=== PATIENT | male | born 1960 | race Caucasian/White ===

== ENCOUNTER 2022-03-11 11:35 | Inpatient (IN) | payer OTHER ==
[2022-03-11] MEDS ORDERED: ALBUTEROL SO4 2.5/IPRATROPIUM 0.5 INH SOL 3 ML VIAL.NEB. NEB ONE ×2 (11:43→11:57)
[2022-03-11] MEDS ORDERED: DEXAMETHASONE SOD PHOSPHATE 10 MG/1 ML VIAL ONE ×2 (11:43→11:49)
[2022-03-11] MEDS ORDERED: HYDROmorphone HCL CARPU-JECT 2 MG/1 ML DISP.SYRIN IVPB ONE (11:54)
[2022-03-11] MEDS ORDERED: DEXAMETHASONE SOD PHOSPHATE 10 MG/1 ML VIAL IVPUSH ONE (11:58)
[2022-03-11] MEDS ORDERED: ALBUTEROL SO4 0.083% IH SOL 2.5 MG/3 ML VIAL.NEB. NEB ONE ×4 (12:16→14:42)
[2022-03-11 12:50] LABS: ARTERIAL BLD GAS O2 SATURATION 90.8 % (95-98); ARTERIAL BLOOD GAS BASE EXCESS 22.8 mmol/L (-2-2); ARTERIAL BLOOD GAS PO2 80.6 mmHg (80-100)
[2022-03-11 12:56] LABS: ARTERIAL BLOOD GAS pH 7.184 (7.350-7.450)
[2022-03-11 12:57] LABS: ARTERIAL BLOOD GAS PCO2 > 148.50 mmHg (35-45); BASO % 0.3 % (0-2.0); HEMATOCRIT 33.4 % (35.4-49); HEMOGLOBIN 10.5 GM/dL (11.7-16.9); LYMPH % 13.9 % (8-40); MCH 27.2 pg (25.7-33.7); MCHC 31.3 g/dl (32.0-35.9); MEAN CELL VOLUME 86.9 fl (80-96); MEAN PLT VOLUME 8.5 fl (7.5-11.1); MONO % 8.5 % (3.8-10.2); NEUT % 76.3 % (42.8-82.8); PLATELET COUNT 293 10^3/uL (134-434); RBC 3.85 M/mm3 (4.00-5.60); WHITE BLOOD COUNT 11.6 K/mm3 (4.0-10.0)
[2022-03-11 13:03] LABS: INR 0.95 (0.83-1.09); PROTHROMBIN TIME (PATIENT) 10.9 SEC (9.7-13.0)
[2022-03-11 13:10] LABS: CHLORIDE 87 mmol/L (98-107); SODIUM 137 mmol/L (136-145)
[2022-03-11 13:12] LABS: ALBUMIN 3.2 g/dl (3.4-5.0); BLOOD UREA NITROGEN 13.3 mg/dL (7-18); GLUCOSE,RANDOM 320 mg/dL (74-106)
[2022-03-11 13:15] LABS: CREATININE 0.7 mg/dL (0.55-1.3); SGOT/AST 83 U/L (15-37); SGPT/ALT 99 U/L (13-61)
[2022-03-11 13:17] LABS: BILIRUBIN,TOTAL 0.2 mg/dL (0.2-1); TOT PROT 7.9 g/dl (6.4-8.2)
[2022-03-11 13:18] LABS: ALK PHOS 121 U/L (45-117)
[2022-03-11 13:23] LABS: ANION GAP 6 MMOL/L (8-16); CO2 > 45 mmol/L (21-32); N-TERMINAL BNP 5743.6 pg/ml (5-125)
[2022-03-11 13:28] LABS: ANISOCYTOSIS 0; HELMET CELLS 0; HOWELL-JOLLY BODIES 0; MACROCYTOSIS 0; OVALOCYTE 0; ROULEAU 0; SICKELED CELLS 0; TARGET CELLS 0; TEAR DROP CELLS 0; TOXIC GRANULATION 0
[2022-03-11] MEDS ORDERED: INSULIN REGULAR HUMAN 100 UNITS/ML *VIAL SQ ONE (14:31)
[2022-03-11] MEDS: PROPOFOL 1,000,000 MCG/100 ML VIAL IVPB SCH (14:40)
[2022-03-11] MEDS ORDERED: KETAMINE HCL 200 MG/20 ML VIAL ONE (14:40)
[2022-03-11] MEDS ORDERED: KETAMINE HCL 200 MG/20 ML VIAL IVPUSH ONE ×2 (14:46→15:29)
[2022-03-11 14:49] LABS: ARTERIAL BLOOD GAS BASE EXCESS 22.6 mmol/L (-2-2); ARTERIAL BLOOD GAS PO2 56.6 mmHg (80-100); ARTERIAL BLOOD GAS pH 7.273 (7.350-7.450)
[2022-03-11] MEDS ORDERED: RAPID SEQUENCE INTUBATION KIT NR ONE ×2 (14:49→14:57)
[2022-03-11 15:05] LABS: CHOLESTEROL 147 mg/dL (50-200); IRON SERUM 39 ug/dL (50-175); TOTAL IRON BINDING CAPACITY 429 ug/dL (250-450); TRIGLYCERIDES 122 mg/dL (0-150)
[2022-03-11 15:06] LABS: LDL CHOLESTEROL (ONLY SJRH) 59 mg/dL (5-100)
[2022-03-11 15:07] LABS: HDL CHOLESTEROL 73 mg/dL (40-60)
[2022-03-11] MEDS ORDERED: SUCCINYLCHOLINE CHLORIDE 200 MG/10 ML VIAL IVPUSH ONE (15:30)
[2022-03-11] MEDS ORDERED: ROCURONIUM BROMIDE 50 MG/5 ML VIAL IV ONE (15:30)
[2022-03-11] MEDS ORDERED: ETOMIDATE 40 MG/20 ML VIAL IVPUSH ONE (15:30)
[2022-03-11] MEDS ORDERED: FUROSEMIDE 40 MG/4 ML INJECTABLE VIAL IVPUSH ONE (15:42)
[2022-03-11] MEDS ORDERED: INSULIN REGULAR HUMAN 100 UNITS/ML *VIAL IVPUSH ONE (15:46)
[2022-03-11] MEDS ORDERED: CEFTRIAXONE 1 GM in DEXTROSE 5%-WATER - 50 ML IVPB ONE (16:00)
[2022-03-11] MEDS ORDERED: AZITHROMYCIN IVPB 500 MG/250 ML BAG IVPB ONE (16:00)
[2022-03-11] MEDS ORDERED: FENTANYL NS IVPB 500 MCG/100 ML BAG IVPB SCH (16:45)
[2022-03-11] MEDS: INSULIN SLIDING SCALE (NOVOLOG) 1 VIAL SQ SCH ×3 (17:25→21:20)
[2022-03-11] MEDS: methylPREDNISolone NA SUCC 40 MG/1 ML VIAL IVPUSH SCH (17:26)
[2022-03-11 18:03] LABS: ALLENS TEST POSITIVE; ARTERIAL BLD GAS O2 SATURATION 99.2 % (95-98); ARTERIAL BLOOD GAS BASE EXCESS 20.7 mmol/L (-2-2); ARTERIAL BLOOD GAS PO2 184.7 mmHg (80-100)
[2022-03-11] MEDS: FENTANYL NS IVPB 500 MCG/100 ML BAG IVPB SCH (18:03)
[2022-03-11 18:04] LABS: VENT MODE A/C; VENT RATE 18
[2022-03-11] MEDS: ALBUTEROL SO4 2.5/IPRATROPIUM 0.5 INH SOL 3 ML VIAL.NEB. NEB SCH (20:05)
[2022-03-11] MEDS: MUPIROCIN 2% TOPICAL OINTMENT FOR DECOLONIZATION NS SCH (21:03)
[2022-03-11] MEDS: ENOXAPARIN NA (PORCINE) 40 MG/0.4 ML DISP.SYRIN SQ SCH (21:05)
[2022-03-11] MEDS: CHLORHEXIDINE GLUCONATE 4% CLEANSER FOR DECOLONIZATION TP SCH (21:07)
[2022-03-11] MEDS: BUDESONIDE/FORMETEROL FUMARATE 160/4.5 mcg INHALER IH SCH (21:20)
[2022-03-12] MEDS: methylPREDNISolone NA SUCC 40 MG/1 ML VIAL IVPUSH SCH ×3 (01:07→17:06)
[2022-03-12] MEDS ORDERED: MIDAZOLAM IN 0.9 % SOD.CHLORID 1 MG/1 ML PLAST..BAG ONE (02:24)
[2022-03-12 02:40] LABS: PH,URINE 8.5 (5.0-8.0); URINE APPEARANCE CLEAR; URINE BILIRUBIN NEGATIVE (NEGATIVE); URINE COLOR YELLOW; URINE GLUCOSE (UA) TRACE (NEGATIVE); URINE KETONE 1+ (NEGATIVE); URINE LEUK ESTERASE NEGATIVE (NEGATIVE); URINE NITRITE NEGATIVE (NEGATIVE); URINE PROTEIN TRACE (NEGATIVE); URINE UROBILINOGEN 0.2 mg/dL (0.2-1.0)
[2022-03-12 02:46] LABS: OPIATES, URI NEGATIVE (NEGATIVE); PHENCYCLIDINE,URINE NEGATIVE (NEGATIVE); URINE BARBITURATES NEGATIVE (NEGATIVE)
[2022-03-12 02:47] LABS: COCAINE, UR NEGATIVE (NEGATIVE); METHADONE, UR NEGATIVE (NEGATIVE); URINE BENZODIAZEPINES NEGATIVE (NEGATIVE)
[2022-03-12 04:51] LABS: URINE AMPHETAMINES NEGATIVE (NEGATIVE)
[2022-03-12] MEDS: INSULIN SLIDING SCALE (NOVOLOG) 1 VIAL SQ SCH ×4 (06:02→21:00)
[2022-03-12 06:41] LABS: ARTERIAL BLD GAS O2 SATURATION 97.7 % (95-98); ARTERIAL BLOOD GAS BASE EXCESS 21.3 mmol/L (-2-2); ARTERIAL BLOOD GAS PO2 102.2 mmHg (80-100); ARTERIAL BLOOD GAS pH 7.461 (7.350-7.450)
[2022-03-12 06:49] LABS: ALLENS TEST POSITIVE
[2022-03-12 06:50] LABS: VENT RATE 18
[2022-03-12] MEDS: MIDAZOLAM IN 0.9 % SOD.CHLORID 100 MG/100 ML PLAST..BAG IVPB SCH ×2 (07:00→19:00)
[2022-03-12] MEDS: ALBUTEROL SO4 2.5/IPRATROPIUM 0.5 INH SOL 3 ML VIAL.NEB. NEB SCH ×4 (07:50→20:05)
[2022-03-12 08:47] LABS: ALBUMIN 2.8 g/dl (3.4-5.0); BLOOD UREA NITROGEN 22.1 mg/dL (7-18)
[2022-03-12 08:50] LABS: CREATININE 0.8 mg/dL (0.55-1.3)
[2022-03-12 08:51] LABS: BILIRUBIN,TOTAL 0.3 mg/dL (0.2-1); TOT PROT 6.8 g/dl (6.4-8.2)
[2022-03-12 08:54] LABS: CALCIUM 8.9 mg/dL (8.5-10.1)
[2022-03-12] MEDS: PROPOFOL 1,000,000 MCG/100 ML VIAL IVPB SCH ×4 (09:00→17:56)
[2022-03-12 09:05] LABS: HEMATOCRIT 29.9 % (35.4-49); HEMOGLOBIN 9.6 GM/dL (11.7-16.9); MCH 27.5 pg (25.7-33.7); MCHC 32.1 g/dl (32.0-35.9); MEAN CELL VOLUME 85.6 fl (80-96); MEAN PLT VOLUME 9.4 fl (7.5-11.1); PLATELET COUNT 244 10^3/uL (134-434); RDW 15.9 % (11.9-15.9); WHITE BLOOD COUNT 11.7 K/mm3 (4.0-10.0)
[2022-03-12] MEDS: CEFTRIAXONE 1 GM in DEXTROSE 5%-WATER - 50 ML IVPB SCH (09:10)
[2022-03-12] MEDS: ENOXAPARIN NA (PORCINE) 40 MG/0.4 ML DISP.SYRIN SQ SCH ×2 (09:11→21:00)
[2022-03-12] MEDS: BUDESONIDE/FORMETEROL FUMARATE 160/4.5 mcg INHALER IH SCH ×2 (09:11→21:01)
[2022-03-12] MEDS: MUPIROCIN 2% TOPICAL OINTMENT FOR DECOLONIZATION NS SCH ×2 (09:11→21:00)
[2022-03-12 09:29] LABS: PH,URINE 8.5 (5.0-8.0); URINE APPEARANCE CLEAR; URINE BILIRUBIN NEGATIVE (NEGATIVE); URINE COLOR YELLOW; URINE GLUCOSE (UA) NEGATIVE (NEGATIVE); URINE KETONE TRACE (NEGATIVE); URINE LEUK ESTERASE NEGATIVE (NEGATIVE); URINE NITRITE NEGATIVE (NEGATIVE); URINE PROTEIN TRACE (NEGATIVE); URINE UROBILINOGEN 0.2 mg/dL (0.2-1.0)
[2022-03-12] MEDS ORDERED: AZITHROMYCIN IVPB 250 MG in DEXTROSE 5%-WATER - 250 ML IVPB SCH (10:00)
[2022-03-12 10:25] LABS: ANISOCYTOSIS 1+; MACROCYTOSIS 0
[2022-03-12] MEDS: FENTANYL NS IVPB 500 MCG/100 ML BAG IVPB SCH ×2 (11:49→16:00)
[2022-03-12] MEDS ORDERED: NAPH,MB-DB/K PH,MBDB POWDER PACKET NGT ONE (15:00)
[2022-03-12] MEDS: AMINO ACIDS/PROTEIN HYDROLYS 30 ML LIQUID.PKT NGT SCH (16:43)
[2022-03-12] MEDS: INSULIN (LEVEMIR) 100 UNITS/ML UNITS SQ SCH (21:00)
[2022-03-12] MEDS: CHLORHEXIDINE GLUCONATE 4% CLEANSER FOR DECOLONIZATION TP SCH (21:00)
[2022-03-12] MEDS: DOXYCYCLINE INJECTION 100 MG in DEXTROSE 5%-WATER 100 ML IVPB SCH (21:01)
[2022-03-13] MEDS: FENTANYL NS IVPB 500 MCG/100 ML BAG IVPB SCH (01:17)
[2022-03-13] MEDS: methylPREDNISolone NA SUCC 40 MG/1 ML VIAL IVPUSH SCH ×3 (01:17→17:12)
[2022-03-13] MEDS: PROPOFOL 1,000,000 MCG/100 ML VIAL IVPB SCH ×4 (01:17→20:30)
[2022-03-13] MEDS: MIDAZOLAM IN 0.9 % SOD.CHLORID 100 MG/100 ML PLAST..BAG IVPB SCH ×2 (06:25→14:27)
[2022-03-13] MEDS: INSULIN (LEVEMIR) 100 UNITS/ML UNITS SQ SCH ×2 (06:26→21:23)
[2022-03-13] MEDS: INSULIN (NOVOLOG) ASPART 100 UNITS/ML 10ML VIAL SQ SCH ×3 (06:27→16:43)
[2022-03-13] MEDS: INSULIN SLIDING SCALE (NOVOLOG) 1 VIAL SQ SCH ×4 (06:28→21:24)
[2022-03-13 06:53] LABS: ARTERIAL BLD GAS O2 SATURATION 93.5 % (95-98); ARTERIAL BLOOD GAS BASE EXCESS 16.8 mmol/L (-2-2); ARTERIAL BLOOD GAS PO2 70.2 mmHg (80-100); ARTERIAL BLOOD GAS pH 7.409 (7.350-7.450)
[2022-03-13 07:00] LABS: VENT MODE V-A/C; VENT RATE 14
[2022-03-13 07:53] LABS: BASO % 0.4 % (0-2.0); HEMATOCRIT 31.6 % (35.4-49); LYMPH % 7.2 % (8-40); MCH 26.9 pg (25.7-33.7); MCHC 31.7 g/dl (32.0-35.9); MEAN CELL VOLUME 84.9 fl (80-96); MONO % 4.5 % (3.8-10.2); NEUT % 87.9 % (42.8-82.8); PLATELET COUNT 245 10^3/uL (134-434); RBC 3.72 M/mm3 (4.00-5.60); RDW 16.3 % (11.9-15.9); WHITE BLOOD COUNT 9.4 K/mm3 (4.0-10.0)
[2022-03-13 08:10] LABS: CALCIUM 8.3 mg/dL (8.5-10.1)
[2022-03-13 08:11] LABS: ALBUMIN 2.7 g/dl (3.4-5.0); BLOOD UREA NITROGEN 25.8 mg/dL (7-18); MAGNESIUM 2.1 mg/dL (1.8-2.4)
[2022-03-13 08:14] LABS: CREATININE 0.6 mg/dL (0.55-1.3); PHOSPHOROUS 4.2 mg/dL (2.5-4.9)
[2022-03-13 08:15] LABS: BILIRUBIN,TOTAL 0.2 mg/dL (0.2-1); TOT PROT 6.6 g/dl (6.4-8.2)
[2022-03-13] MEDS: ALBUTEROL SO4 2.5/IPRATROPIUM 0.5 INH SOL 3 ML VIAL.NEB. NEB SCH ×4 (08:47→20:35)
[2022-03-13] MEDS: ENOXAPARIN NA (PORCINE) 40 MG/0.4 ML DISP.SYRIN SQ SCH ×2 (09:23→21:26)
[2022-03-13] MEDS: AMINO ACIDS/PROTEIN HYDROLYS 30 ML LIQUID.PKT NGT SCH ×3 (09:23→17:12)
[2022-03-13] MEDS: MUPIROCIN 2% TOPICAL OINTMENT FOR DECOLONIZATION NS SCH ×2 (09:23→21:26)
[2022-03-13] MEDS: CEFTRIAXONE 1 GM in DEXTROSE 5%-WATER - 50 ML IVPB SCH (09:24)
[2022-03-13] MEDS: BUDESONIDE/FORMETEROL FUMARATE 160/4.5 mcg INHALER IH SCH ×2 (09:24→21:25)
[2022-03-13] MEDS: DOXYCYCLINE INJECTION 100 MG in DEXTROSE 5%-WATER 100 ML IVPB SCH ×2 (09:32→21:25)
[2022-03-13] MEDS: CHLORHEXIDINE GLUCONATE 4% CLEANSER FOR DECOLONIZATION TP SCH (21:26)
[2022-03-14] MEDS: PROPOFOL 1,000,000 MCG/100 ML VIAL IVPB SCH ×7 (00:21→23:40)
[2022-03-14] MEDS: MIDAZOLAM IN 0.9 % SOD.CHLORID 100 MG/100 ML PLAST..BAG IVPB SCH ×4 (00:22→19:30)
[2022-03-14] MEDS: methylPREDNISolone NA SUCC 40 MG/1 ML VIAL IVPUSH SCH ×3 (02:22→17:30)
[2022-03-14] MEDS: INSULIN (LEVEMIR) 100 UNITS/ML UNITS SQ SCH ×2 (06:15→21:21)
[2022-03-14] MEDS: INSULIN SLIDING SCALE (NOVOLOG) 1 VIAL SQ SCH ×4 (06:15→21:21)
[2022-03-14] MEDS: INSULIN (NOVOLOG) ASPART 100 UNITS/ML 10ML VIAL SQ SCH (06:16)
[2022-03-14 07:38] LABS: BASO % 0.1 % (0-2.0); HEMATOCRIT 32.8 % (35.4-49); HEMOGLOBIN 10.6 GM/dL (11.7-16.9); LYMPH % 6.5 % (8-40); MCH 27.6 pg (25.7-33.7); MCHC 32.4 g/dl (32.0-35.9); MEAN CELL VOLUME 85.3 fl (80-96); MEAN PLT VOLUME 8.9 fl (7.5-11.1); MONO % 3.8 % (3.8-10.2); NEUT % 89.6 % (42.8-82.8); PLATELET COUNT 256 10^3/uL (134-434); RBC 3.85 M/mm3 (4.00-5.60); RDW 16.3 % (11.9-15.9); WHITE BLOOD COUNT 9.2 K/mm3 (4.0-10.0)
[2022-03-14 07:55] LABS: ALBUMIN 2.6 g/dl (3.4-5.0); CALCIUM 8.9 mg/dL (8.5-10.1)
[2022-03-14 07:57] LABS: MAGNESIUM 2.3 mg/dL (1.8-2.4)
[2022-03-14 07:59] LABS: BILIRUBIN,TOTAL 0.3 mg/dL (0.2-1)
[2022-03-14 08:00] LABS: TOT PROT 6.6 g/dl (6.4-8.2)
[2022-03-14 08:02] LABS: CREATININE 0.7 mg/dL (0.55-1.3)
[2022-03-14] MEDS ORDERED: INSULIN (LEVEMIR) 100 UNITS/ML UNITS SQ SCH (08:18)
[2022-03-14] MEDS: ALBUTEROL SO4 2.5/IPRATROPIUM 0.5 INH SOL 3 ML VIAL.NEB. NEB SCH ×4 (08:25→20:31)
[2022-03-14] MEDS: AMINO ACIDS/PROTEIN HYDROLYS 30 ML LIQUID.PKT NGT SCH ×3 (08:53→17:30)
[2022-03-14] MEDS: DOXYCYCLINE INJECTION 100 MG in DEXTROSE 5%-WATER 100 ML IVPB SCH ×2 (09:08→21:22)
[2022-03-14] MEDS: ENOXAPARIN NA (PORCINE) 40 MG/0.4 ML DISP.SYRIN SQ SCH (09:08)
[2022-03-14] MEDS: BUDESONIDE/FORMETEROL FUMARATE 160/4.5 mcg INHALER IH SCH ×2 (09:08→21:23)
[2022-03-14] MEDS: CEFTRIAXONE 1 GM in DEXTROSE 5%-WATER - 50 ML IVPB SCH (09:08)
[2022-03-14] MEDS: MUPIROCIN 2% TOPICAL OINTMENT FOR DECOLONIZATION NS SCH ×2 (09:10→21:23)
[2022-03-14] MEDS ORDERED: FUROSEMIDE INJECTION 100 MG in SODIUM CHLORIDE 40 ML IVPB SCH (15:00)
[2022-03-14] MEDS: HEPARIN NA (PORCINE) 5,000 UNITS/ML 1ML VIAL SQ SCH ×2 (15:21→21:23)
[2022-03-14] MEDS: FUROSEMIDE INJECTION 100 MG in SODIUM CHLORIDE 40 ML IVPB SCH (17:30)
[2022-03-14] MEDS: CHLORHEXIDINE GLUCONATE 4% CLEANSER FOR DECOLONIZATION TP SCH (21:25)
[2022-03-15] MEDS: methylPREDNISolone NA SUCC 40 MG/1 ML VIAL IVPUSH SCH ×3 (01:07→17:27)
[2022-03-15] MEDS: FUROSEMIDE INJECTION 100 MG in SODIUM CHLORIDE 40 ML IVPB SCH ×2 (02:51→13:46)
[2022-03-15] MEDS: MIDAZOLAM IN 0.9 % SOD.CHLORID 100 MG/100 ML PLAST..BAG IVPB SCH ×3 (03:34→16:32)
[2022-03-15] MEDS: PROPOFOL 1,000,000 MCG/100 ML VIAL IVPB SCH ×5 (03:34→21:34)
[2022-03-15] MEDS: HEPARIN NA (PORCINE) 5,000 UNITS/ML 1ML VIAL SQ SCH ×3 (05:55→21:30)
[2022-03-15] MEDS: INSULIN (LEVEMIR) 100 UNITS/ML UNITS SQ SCH ×2 (06:19→21:25)
[2022-03-15] MEDS: INSULIN SLIDING SCALE (NOVOLOG) 1 VIAL SQ SCH ×4 (06:21→21:24)
[2022-03-15 06:45] LABS: BASO % 0.4 % (0-2.0); HEMATOCRIT 34.9 % (35.4-49); HEMOGLOBIN 11.1 GM/dL (11.7-16.9); LYMPH % 6.9 % (8-40); MCH 26.8 pg (25.7-33.7); MCHC 31.8 g/dl (32.0-35.9); MEAN CELL VOLUME 84.3 fl (80-96); MEAN PLT VOLUME 9.2 fl (7.5-11.1); MONO % 6.5 % (3.8-10.2); NEUT % 86.2 % (42.8-82.8); PLATELET COUNT 248 10^3/uL (134-434); RBC 4.14 M/mm3 (4.00-5.60); RDW 16.2 % (11.9-15.9)
[2022-03-15 07:02] LABS: CHLORIDE 78 mmol/L (98-107); SODIUM 129 mmol/L (136-145)
[2022-03-15 07:06] LABS: CALCIUM 8.6 mg/dL (8.5-10.1)
[2022-03-15 07:07] LABS: ALBUMIN 2.6 g/dl (3.4-5.0); BLOOD UREA NITROGEN 36.6 mg/dL (7-18); MAGNESIUM 2.1 mg/dL (1.8-2.4)
[2022-03-15 07:10] LABS: CREATININE 0.9 mg/dL (0.55-1.3); PHOSPHOROUS 5.7 mg/dL (2.5-4.9); SGOT/AST 81 U/L (15-37); SGPT/ALT 44 U/L (13-61)
[2022-03-15 07:11] LABS: TOT PROT 7.2 g/dl (6.4-8.2)
[2022-03-15 07:12] LABS: BILIRUBIN,TOTAL 0.5 mg/dL (0.2-1)
[2022-03-15 07:13] LABS: ALK PHOS 81 U/L (45-117); ANION GAP 6 MMOL/L (8-16); CO2 > 45 mmol/L (21-32); GLUCOSE,RANDOM 444 mg/dL (74-106)
[2022-03-15] MEDS: ALBUTEROL SO4 2.5/IPRATROPIUM 0.5 INH SOL 3 ML VIAL.NEB. NEB SCH ×4 (08:20→20:36)
[2022-03-15] MEDS: MUPIROCIN 2% TOPICAL OINTMENT FOR DECOLONIZATION NS SCH ×2 (09:31→21:34)
[2022-03-15] MEDS: CEFTRIAXONE 1 GM in DEXTROSE 5%-WATER - 50 ML IVPB SCH (09:31)
[2022-03-15] MEDS: AMINO ACIDS/PROTEIN HYDROLYS 30 ML LIQUID.PKT NGT SCH ×3 (09:31→17:27)
[2022-03-15] MEDS: DOXYCYCLINE INJECTION 100 MG in DEXTROSE 5%-WATER 100 ML IVPB SCH ×2 (09:31→21:30)
[2022-03-15] MEDS: BUDESONIDE/FORMETEROL FUMARATE 160/4.5 mcg INHALER IH SCH ×2 (12:05→21:34)
[2022-03-15 12:17] LABS: CHLORIDE 78 mmol/L (98-107); SODIUM 131 mmol/L (136-145)
[2022-03-15 12:18] LABS: CALCIUM 9.3 mg/dL (8.5-10.1)
[2022-03-15 12:19] LABS: ALBUMIN 2.9 g/dl (3.4-5.0); ANION GAP 8 MMOL/L (8-16); CO2 45 mmol/L (21-32)
[2022-03-15 12:22] LABS: CREATININE 0.9 mg/dL (0.55-1.3); SGOT/AST 22 U/L (15-37); SGPT/ALT 41 U/L (13-61)
[2022-03-15 12:24] LABS: BILIRUBIN,TOTAL 0.3 mg/dL (0.2-1); TOT PROT 7.1 g/dl (6.4-8.2)
[2022-03-15 12:25] LABS: ALK PHOS 89 U/L (45-117)
[2022-03-15 12:27] LABS: GLUCOSE,RANDOM 423 mg/dL (74-106)
[2022-03-15] MEDS: CHLORHEXIDINE GLUCONATE 4% CLEANSER FOR DECOLONIZATION TP SCH (21:24)
[2022-03-16] MEDS: methylPREDNISolone NA SUCC 40 MG/1 ML VIAL IVPUSH SCH ×2 (01:07→09:23)
[2022-03-16] MEDS: FUROSEMIDE INJECTION 100 MG in SODIUM CHLORIDE 40 ML IVPB SCH (02:30)
[2022-03-16] MEDS: MIDAZOLAM IN 0.9 % SOD.CHLORID 100 MG/100 ML PLAST..BAG IVPB SCH ×2 (02:30→20:00)
[2022-03-16] MEDS: INSULIN SLIDING SCALE (NOVOLOG) 1 VIAL SQ SCH ×4 (06:47→21:56)
[2022-03-16] MEDS: INSULIN (LEVEMIR) 100 UNITS/ML UNITS SQ SCH ×2 (06:47→21:57)
[2022-03-16] MEDS: HEPARIN NA (PORCINE) 5,000 UNITS/ML 1ML VIAL SQ SCH ×3 (06:49→21:53)
[2022-03-16 07:03] LABS: ARTERIAL BLD GAS O2 SATURATION 93.9 % (95-98); ARTERIAL BLOOD GAS BASE EXCESS 20.3 mmol/L (-2-2); ARTERIAL BLOOD GAS PO2 72.4 mmHg (80-100); ARTERIAL BLOOD GAS pH 7.415 (7.350-7.450)
[2022-03-16 07:22] LABS: ALLENS TEST POSITIVE; VENT MODE A/C; VENT RATE 14
[2022-03-16 08:02] LABS: CHLORIDE 79 mmol/L (98-107); SODIUM 133 mmol/L (136-145)
[2022-03-16 08:03] LABS: ANION GAP 9 MMOL/L (8-16); CO2 44 mmol/L (21-32)
[2022-03-16 08:04] LABS: BLOOD UREA NITROGEN 61.4 mg/dL (7-18); MAGNESIUM 2.6 mg/dL (1.8-2.4)
[2022-03-16 08:07] LABS: CREATININE 1.1 mg/dL (0.55-1.3); PHOSPHOROUS 5.6 mg/dL (2.5-4.9)
[2022-03-16 08:13] LABS: GLUCOSE,RANDOM 474 mg/dL (74-106); HEMATOCRIT 37.7 % (35.4-49); HEMOGLOBIN 11.9 GM/dL (11.7-16.9); MCH 26.7 pg (25.7-33.7); MCHC 31.7 g/dl (32.0-35.9); MEAN CELL VOLUME 84.3 fl (80-96); PLATELET COUNT 259 10^3/uL (134-434); RBC 4.47 M/mm3 (4.00-5.60); RDW 16.1 % (11.9-15.9); WHITE BLOOD COUNT 11.4 K/mm3 (4.0-10.0)
[2022-03-16] MEDS: ALBUTEROL SO4 2.5/IPRATROPIUM 0.5 INH SOL 3 ML VIAL.NEB. NEB SCH ×4 (08:30→20:06)
[2022-03-16] MEDS: AMINO ACIDS/PROTEIN HYDROLYS 30 ML LIQUID.PKT NGT SCH ×3 (08:55→16:38)
[2022-03-16] MEDS ORDERED: INSULIN (LEVEMIR) 100 UNITS/ML UNITS SQ ONE (08:57)
[2022-03-16] MEDS ORDERED: Insulin (LOG) Aspart 100 UNITS/ML VIAL SQ ONE (09:12)
[2022-03-16] MEDS: DOXYCYCLINE INJECTION 100 MG in DEXTROSE 5%-WATER 100 ML IVPB SCH ×2 (09:22→21:53)
[2022-03-16] MEDS: CEFTRIAXONE 1 GM in DEXTROSE 5%-WATER - 50 ML IVPB SCH (09:22)
[2022-03-16] MEDS: MUPIROCIN 2% TOPICAL OINTMENT FOR DECOLONIZATION NS SCH (09:22)
[2022-03-16] MEDS: BUDESONIDE/FORMETEROL FUMARATE 160/4.5 mcg INHALER IH SCH ×2 (09:33→21:53)
[2022-03-16] MEDS: INSULIN (NOVOLOG) ASPART 100 UNITS/ML 10ML VIAL SQ SCH ×2 (11:08→16:38)
[2022-03-16] MEDS: ACETAMINOPHEN 1000 MG/100 ML BAG IVPB PRN (16:36)
[2022-03-16] MEDS: PROPOFOL 1,000,000 MCG/100 ML VIAL IVPB SCH ×2 (16:38→20:00)
[2022-03-16] MEDS: CHLORHEXIDINE GLUCONATE 4% CLEANSER FOR DECOLONIZATION TP SCH (21:53)
[2022-03-17] MEDS: PROPOFOL 1,000,000 MCG/100 ML VIAL IVPB SCH ×2 (00:35→03:30)
[2022-03-17] MEDS: MIDAZOLAM IN 0.9 % SOD.CHLORID 100 MG/100 ML PLAST..BAG IVPB SCH (05:57)
[2022-03-17] MEDS: HEPARIN NA (PORCINE) 5,000 UNITS/ML 1ML VIAL SQ SCH ×3 (05:58→21:03)
[2022-03-17] MEDS: INSULIN (LEVEMIR) 100 UNITS/ML UNITS SQ SCH ×2 (05:59→21:04)
[2022-03-17] MEDS: INSULIN SLIDING SCALE (NOVOLOG) 1 VIAL SQ SCH ×4 (06:00→21:04)
[2022-03-17] MEDS: INSULIN (NOVOLOG) ASPART 100 UNITS/ML 10ML VIAL SQ SCH ×3 (06:00→16:31)
[2022-03-17 07:27] LABS: ARTERIAL BLD GAS O2 SATURATION 93.9 % (95-98); ARTERIAL BLOOD GAS BASE EXCESS 21.6 mmol/L (-2-2); ARTERIAL BLOOD GAS pH 7.462 (7.350-7.450)
[2022-03-17 07:34] LABS: ALLENS TEST POSITIVE; VENT MODE A/C; VENT RATE 14
[2022-03-17 08:03] LABS: HEMATOCRIT 40.2 % (35.4-49); HEMOGLOBIN 12.3 GM/dL (11.7-16.9); MCH 26.1 pg (25.7-33.7); MCHC 30.5 g/dl (32.0-35.9); MEAN CELL VOLUME 85.6 fl (80-96); MEAN PLT VOLUME 9.4 fl (7.5-11.1); PLATELET COUNT 251 10^3/uL (134-434); RBC 4.69 M/mm3 (4.00-5.60); WHITE BLOOD COUNT 14.8 K/mm3 (4.0-10.0)
[2022-03-17 08:30] LABS: CHLORIDE 86 mmol/L (98-107); SODIUM 137 mmol/L (136-145)
[2022-03-17 08:32] LABS: CALCIUM 9.3 mg/dL (8.5-10.1)
[2022-03-17 08:33] LABS: ALBUMIN 3.1 g/dl (3.4-5.0); BLOOD UREA NITROGEN 60.6 mg/dL (7-18); GLUCOSE,RANDOM 191 mg/dL (74-106); MAGNESIUM 2.6 mg/dL (1.8-2.4)
[2022-03-17 08:36] LABS: CREATININE 0.8 mg/dL (0.55-1.3); SGPT/ALT 40 U/L (13-61)
[2022-03-17 08:37] LABS: TOT PROT 7.3 g/dl (6.4-8.2)
[2022-03-17 08:38] LABS: BILIRUBIN,TOTAL 0.3 mg/dL (0.2-1); SGOT/AST 38 U/L (15-37)
[2022-03-17 08:39] LABS: ALK PHOS 82 U/L (45-117)
[2022-03-17 08:44] LABS: ANION GAP 7 MMOL/L (8-16); CO2 > 45 mmol/L (21-32)
[2022-03-17] MEDS: AMINO ACIDS/PROTEIN HYDROLYS 30 ML LIQUID.PKT NGT SCH ×3 (08:55→16:32)
[2022-03-17] MEDS: FUROSEMIDE 40 MG/4 ML INJECTABLE VIAL IVPUSH SCH (09:04)
[2022-03-17] MEDS: CEFTRIAXONE 1 GM in DEXTROSE 5%-WATER - 50 ML IVPB SCH (09:04)
[2022-03-17] MEDS: ALBUTEROL SO4 2.5/IPRATROPIUM 0.5 INH SOL 3 ML VIAL.NEB. NEB SCH ×4 (09:04→20:30)
[2022-03-17] MEDS: DOXYCYCLINE INJECTION 100 MG in DEXTROSE 5%-WATER 100 ML IVPB SCH ×2 (09:04→21:03)
[2022-03-17] MEDS: POLYETHYLENE GLYCOL (HEALTHYLAX) 3350 17 GM PACKET PO SCH ×2 (09:09→21:04)
[2022-03-17] MEDS: BUDESONIDE/FORMETEROL FUMARATE 160/4.5 mcg INHALER IH SCH ×2 (09:10→21:05)
[2022-03-17 09:21] LABS: ANISOCYTOSIS 0; HELMET CELLS 0; HOWELL-JOLLY BODIES 0; MACROCYTOSIS 0; OVALOCYTE 0; ROULEAU 0; SICKELED CELLS 0; TARGET CELLS 0; TEAR DROP CELLS 0; TOXIC GRANULATION 0
[2022-03-17] MEDS ORDERED: PANTOPRAZOLE SOD 40 MG SUSPENSION PACKET PO SCH (10:00)
[2022-03-17] MEDS ORDERED: methylPREDNISolone NA SUCC 40 MG/1 ML VIAL IVPUSH SCH (10:00)
[2022-03-17] MEDS ORDERED: POTASSIUM CHLORIDE ORAL LIQUID 20 MEQ/15 ML PO ONE ×2 (10:11→16:00)
[2022-03-17] MEDS: PANTOPRAZOLE SODIUM 40 MG VIAL IVPUSH SCH (11:15)
[2022-03-17] MEDS: ACETAMINOPHEN 1000 MG/100 ML BAG IVPB PRN (12:55)
[2022-03-17] MEDS ORDERED: morphine SULFATE 4 MG/ML VIAL IVPUSH ONE (15:24)
[2022-03-17] MEDS ORDERED: KCL 10 MEQ IVPB 10 MEQ/100 ML INFUS.BAG IVPB SCH (15:30)
[2022-03-17] MEDS: CHLORHEXIDINE GLUCONATE 4% CLEANSER FOR DECOLONIZATION TP SCH (21:04)
[2022-03-18] MEDS: HEPARIN NA (PORCINE) 5,000 UNITS/ML 1ML VIAL SQ SCH ×3 (05:31→22:27)
[2022-03-18] MEDS: INSULIN (LEVEMIR) 100 UNITS/ML UNITS SQ SCH ×2 (06:23→22:39)
[2022-03-18] MEDS: INSULIN SLIDING SCALE (NOVOLOG) 1 VIAL SQ SCH ×4 (06:23→22:40)
[2022-03-18] MEDS: INSULIN (NOVOLOG) ASPART 100 UNITS/ML 10ML VIAL SQ SCH ×3 (06:23→16:49)
[2022-03-18] MEDS: AMINO ACIDS/PROTEIN HYDROLYS 30 ML LIQUID.PKT NGT SCH (07:25)
[2022-03-18 07:43] LABS: BASO % 0.3 % (0-2.0); EOS % 0.5 % (0-4.5); HEMATOCRIT 42.3 % (35.4-49); HEMOGLOBIN 12.9 GM/dL (11.7-16.9); LYMPH % 12.8 % (8-40); MCH 26.2 pg (25.7-33.7); MCHC 30.6 g/dl (32.0-35.9); MEAN CELL VOLUME 85.6 fl (80-96); MEAN PLT VOLUME 9.6 fl (7.5-11.1); MONO % 13.3 % (3.8-10.2); NEUT % 73.1 % (42.8-82.8); PLATELET COUNT 284 10^3/uL (134-434); RBC 4.94 M/mm3 (4.00-5.60); RDW 15.9 % (11.9-15.9); WHITE BLOOD COUNT 18.9 K/mm3 (4.0-10.0)
[2022-03-18 08:11] LABS: CALCIUM 9.9 mg/dL (8.5-10.1)
[2022-03-18 08:16] LABS: ALBUMIN 3.3 g/dl (3.4-5.0); BLOOD UREA NITROGEN 49.4 mg/dL (7-18); MAGNESIUM 2.4 mg/dL (1.8-2.4)
[2022-03-18 08:17] LABS: CREATININE 0.8 mg/dL (0.55-1.3)
[2022-03-18 08:18] LABS: BILIRUBIN,TOTAL 0.7 mg/dL (0.2-1); TOT PROT 7.8 g/dl (6.4-8.2)
[2022-03-18] MEDS: ALBUTEROL SO4 2.5/IPRATROPIUM 0.5 INH SOL 3 ML VIAL.NEB. NEB SCH (09:00)
[2022-03-18] MEDS: DOXYCYCLINE INJECTION 100 MG in DEXTROSE 5%-WATER 100 ML IVPB SCH (09:10)
[2022-03-18] MEDS: POLYETHYLENE GLYCOL (HEALTHYLAX) 3350 17 GM PACKET PO SCH ×2 (09:10→22:27)
[2022-03-18] MEDS: CEFTRIAXONE 1 GM in DEXTROSE 5%-WATER - 50 ML IVPB SCH (09:10)
[2022-03-18] MEDS: FUROSEMIDE 40 MG/4 ML INJECTABLE VIAL IVPUSH SCH (09:13)
[2022-03-18] MEDS: PANTOPRAZOLE SODIUM 40 MG VIAL IVPUSH SCH (09:13)
[2022-03-18] MEDS: KCL 10 MEQ IVPB 10 MEQ/100 ML INFUS.BAG IVPB SCH ×5 (09:13→15:39)
[2022-03-18] MEDS ORDERED: ALBUTEROL SO4 HFA INHALER IH PRN ×2 (09:46→17:54)
[2022-03-18] MEDS ORDERED: ALBUTEROL SO4 2.5/IPRATROPIUM 0.5 INH SOL 3 ML VIAL.NEB. NEB PRN ×2 (09:46→17:54)
[2022-03-18] MEDS ORDERED: FUROSEMIDE 40 MG TABLET (FP) PO SCH (10:00)
[2022-03-18] MEDS ORDERED: BREXPIPRAZOLE 2 MG PO SCH (10:00)
[2022-03-18] MEDS ORDERED: methylPREDNISolone NA SUCC 40 MG/1 ML VIAL IVPUSH SCH (10:00)
[2022-03-18] MEDS ORDERED: PARoxetine HCL 30 MG TABLET PO SCH (10:00)
[2022-03-18] MEDS ORDERED: BUDESONIDE 0.5 MG/2 ML INH SUSP VIAL NEB SCH (10:00)
[2022-03-18] MEDS ORDERED: BUMETANIDE 1 MG TABLET PO SCH (10:00)
[2022-03-18] MEDS ORDERED: INSULIN (LEVEMIR) 100 UNITS/ML UNITS SQ SCH (10:25)
[2022-03-18] MEDS ORDERED: PARoxetine HCL 10 MG TABLET ONE (10:30)
[2022-03-18] MEDS ORDERED: SODIUM CHLORIDE 500 ML IV STA (11:16)
[2022-03-18] MEDS ORDERED: INSULIN (NOVOLOG) ASPART 100 UNITS/ML 10ML VIAL SQ SCH ×2 (11:44→16:30)
[2022-03-18] MEDS: BUDESONIDE/FORMETEROL FUMARATE 160/4.5 mcg INHALER IH SCH ×2 (13:28→22:10)
[2022-03-18] MEDS ORDERED: morphine CARPU-JECT 4 MG/1 ML DISP.SYRIN IVPUSH ONE (13:38)
[2022-03-18] MEDS ORDERED: morphine SULFATE 4 MG/ML VIAL ONE (14:18)
[2022-03-18] MEDS: ALBUTEROL SO4 2.5/IPRATROPIUM 0.5 INH SOL 3 ML VIAL.NEB. NEB PRN (20:00)
[2022-03-18] MEDS: BUDESONIDE 0.5 MG/2 ML INH SUSP VIAL NEB SCH (20:20)
[2022-03-18] MEDS ORDERED: MONTELUKAST NA 10 MG TABLET PO SCH (22:00)
[2022-03-18] MEDS: MONTELUKAST NA 10 MG TABLET PO SCH (22:27)
[2022-03-19] MEDS: INSULIN (LEVEMIR) 100 UNITS/ML UNITS SQ SCH ×2 (06:14→21:26)
[2022-03-19] MEDS: HEPARIN NA (PORCINE) 5,000 UNITS/ML 1ML VIAL SQ SCH ×3 (06:14→21:25)
[2022-03-19] MEDS: INSULIN SLIDING SCALE (NOVOLOG) 1 VIAL SQ SCH ×4 (06:15→21:25)
[2022-03-19] MEDS: INSULIN (NOVOLOG) ASPART 100 UNITS/ML 10ML VIAL SQ SCH ×3 (06:15→17:16)
[2022-03-19] MEDS: BUDESONIDE 0.5 MG/2 ML INH SUSP VIAL NEB SCH ×2 (08:18→20:05)
[2022-03-19 09:22] LABS: HEMOGLOBIN 12.5 GM/dL (11.7-16.9); MCH 26.9 pg (25.7-33.7); MCHC 31.3 g/dl (32.0-35.9); MEAN CELL VOLUME 85.8 fl (80-96); MEAN PLT VOLUME 9.5 fl (7.5-11.1); PLATELET COUNT 234 10^3/uL (134-434); RBC 4.66 M/mm3 (4.00-5.60); RDW 16.3 % (11.9-15.9); WHITE BLOOD COUNT 13.2 K/mm3 (4.0-10.0)
[2022-03-19] MEDS: PANTOPRAZOLE SODIUM 40 MG VIAL IVPUSH SCH (09:40)
[2022-03-19] MEDS: methylPREDNISolone NA SUCC 40 MG/1 ML VIAL IVPUSH SCH (09:41)
[2022-03-19] MEDS: PARoxetine HCL 10 MG TABLET PO SCH (09:41)
[2022-03-19] MEDS: FUROSEMIDE 40 MG TABLET (FP) PO SCH (09:41)
[2022-03-19] MEDS: POLYETHYLENE GLYCOL (HEALTHYLAX) 3350 17 GM PACKET PO SCH ×2 (09:42→21:26)
[2022-03-19 09:45] LABS: ALBUMIN 3.1 g/dl (3.4-5.0); BLOOD UREA NITROGEN 43.7 mg/dL (7-18)
[2022-03-19 09:48] LABS: CREATININE 0.7 mg/dL (0.55-1.3)
[2022-03-19 09:50] LABS: BILIRUBIN,TOTAL 0.6 mg/dL (0.2-1); TOT PROT 7.2 g/dl (6.4-8.2)
[2022-03-19 09:59] LABS: ARTERIAL BLD GAS O2 SATURATION 96.8 % (95-98); ARTERIAL BLOOD GAS BASE EXCESS 15.8 mmol/L (-2-2); ARTERIAL BLOOD GAS PO2 90.7 mmHg (80-100)
[2022-03-19] MEDS ORDERED: BUMETANIDE 1 MG TABLET PO SCH (10:00)
[2022-03-19 10:01] LABS: ALLENS TEST POSITIVE
[2022-03-19] MEDS: BUDESONIDE/FORMETEROL FUMARATE 160/4.5 mcg INHALER IH SCH ×2 (10:13→21:27)
[2022-03-19] MEDS ORDERED: POTASSIUM CHLORIDE TABS 20 MEQ TABLET.ER (FP) PO SCH (11:30)
[2022-03-19] MEDS: ALBUTEROL SO4 2.5/IPRATROPIUM 0.5 INH SOL 3 ML VIAL.NEB. NEB PRN (11:35)
[2022-03-19] MEDS: BREXPIPRAZOLE 2 MG PO SCH (12:06)
[2022-03-19] MEDS: MONTELUKAST NA 10 MG TABLET PO SCH (21:25)
[2022-03-20] MEDS: INSULIN SLIDING SCALE (NOVOLOG) 1 VIAL SQ SCH ×4 (06:42→21:33)
[2022-03-20] MEDS: INSULIN (NOVOLOG) ASPART 100 UNITS/ML 10ML VIAL SQ SCH ×3 (06:42→17:28)
[2022-03-20] MEDS: INSULIN (LEVEMIR) 100 UNITS/ML UNITS SQ SCH ×2 (06:43→21:34)
[2022-03-20] MEDS: HEPARIN NA (PORCINE) 5,000 UNITS/ML 1ML VIAL SQ SCH ×3 (06:43→21:35)
[2022-03-20] MEDS: BUDESONIDE 0.5 MG/2 ML INH SUSP VIAL NEB SCH ×2 (07:29→20:17)
[2022-03-20 07:42] LABS: HEMATOCRIT 39.2 % (35.4-49); HEMOGLOBIN 11.9 GM/dL (11.7-16.9); MCH 26.3 pg (25.7-33.7); MCHC 30.5 g/dl (32.0-35.9); MEAN CELL VOLUME 86.2 fl (80-96); MEAN PLT VOLUME 9.7 fl (7.5-11.1); PLATELET COUNT 264 10^3/uL (134-434); RBC 4.55 M/mm3 (4.00-5.60); RDW 16.1 % (11.9-15.9); WHITE BLOOD COUNT 13.4 K/mm3 (4.0-10.0)
[2022-03-20 07:52] LABS: ALBUMIN 2.8 g/dl (3.4-5.0)
[2022-03-20 07:55] LABS: CREATININE 0.6 mg/dL (0.55-1.3)
[2022-03-20 07:57] LABS: BILIRUBIN,TOTAL 0.6 mg/dL (0.2-1); TOT PROT 6.8 g/dl (6.4-8.2)
[2022-03-20] MEDS: BREXPIPRAZOLE 2 MG PO SCH (10:38)
[2022-03-20] MEDS: PANTOPRAZOLE SODIUM 40 MG VIAL IVPUSH SCH (10:38)
[2022-03-20] MEDS: POLYETHYLENE GLYCOL (HEALTHYLAX) 3350 17 GM PACKET PO SCH ×2 (10:50→21:34)
[2022-03-20] MEDS: methylPREDNISolone NA SUCC 40 MG/1 ML VIAL IVPUSH SCH (10:51)
[2022-03-20] MEDS: FUROSEMIDE 40 MG TABLET (FP) PO SCH (10:52)
[2022-03-20] MEDS: POTASSIUM CHLORIDE TABS 20 MEQ TABLET.ER (FP) PO SCH (10:52)
[2022-03-20] MEDS: PARoxetine HCL 10 MG TABLET PO SCH (10:52)
[2022-03-20] MEDS: BUDESONIDE/FORMETEROL FUMARATE 160/4.5 mcg INHALER IH SCH ×2 (10:53→21:36)
[2022-03-20] MEDS: ALBUTEROL SO4 2.5/IPRATROPIUM 0.5 INH SOL 3 ML VIAL.NEB. NEB PRN (11:22)
[2022-03-20 15:45] VITALS: BMI 43.0
[2022-03-20] MEDS: MONTELUKAST NA 10 MG TABLET PO SCH (21:36)
[2022-03-21] MEDS: HEPARIN NA (PORCINE) 5,000 UNITS/ML 1ML VIAL SQ SCH (06:25)
[2022-03-21] MEDS: INSULIN (LEVEMIR) 100 UNITS/ML UNITS SQ SCH ×2 (06:25→21:33)
[2022-03-21] MEDS: INSULIN (NOVOLOG) ASPART 100 UNITS/ML 10ML VIAL SQ SCH ×3 (06:26→17:16)
[2022-03-21] MEDS: INSULIN SLIDING SCALE (NOVOLOG) 1 VIAL SQ SCH ×4 (06:30→21:33)
[2022-03-21] MEDS: BUDESONIDE 0.5 MG/2 ML INH SUSP VIAL NEB SCH ×2 (08:15→20:05)
[2022-03-21] MEDS: PARoxetine HCL 10 MG TABLET PO SCH (09:37)
[2022-03-21] MEDS: POTASSIUM CHLORIDE TABS 20 MEQ TABLET.ER (FP) PO SCH (09:37)
[2022-03-21] MEDS: PANTOPRAZOLE SODIUM 40 MG VIAL IVPUSH SCH (09:37)
[2022-03-21] MEDS: FUROSEMIDE 40 MG TABLET (FP) PO SCH (09:37)
[2022-03-21] MEDS: BREXPIPRAZOLE 2 MG PO SCH (09:39)
[2022-03-21] MEDS: BUDESONIDE/FORMETEROL FUMARATE 160/4.5 mcg INHALER IH SCH ×2 (09:44→21:34)
[2022-03-21] MEDS: POLYETHYLENE GLYCOL (HEALTHYLAX) 3350 17 GM PACKET PO SCH ×2 (09:46→21:27)
[2022-03-21] MEDS ORDERED: ACETAMINOPHEN 500 MG TABLET (FP) PO PRN (10:05)
[2022-03-21] MEDS ORDERED: ACETAMINOPHEN 325 MG TABLET (FP) PO ONE (10:15)
[2022-03-21] MEDS ORDERED: oxyCODONE HCL 5 MG TABLET PO ONE (10:15)
[2022-03-21] MEDS: MONTELUKAST NA 10 MG TABLET PO SCH (21:27)
[2022-03-22] MEDS: INSULIN SLIDING SCALE (NOVOLOG) 1 VIAL SQ SCH ×4 (07:25→21:04)
[2022-03-22] MEDS: INSULIN (NOVOLOG) ASPART 100 UNITS/ML 10ML VIAL SQ SCH ×3 (07:25→16:32)
[2022-03-22] MEDS: BUDESONIDE 0.5 MG/2 ML INH SUSP VIAL NEB SCH ×2 (07:35→20:48)
[2022-03-22] MEDS ORDERED: POLYETHYLENE GLYCOL (HEALTHYLAX) 3350 17 GM PACKET PO PRN (09:26)
[2022-03-22] MEDS: INSULIN (LEVEMIR) 100 UNITS/ML UNITS SQ SCH ×2 (09:59→21:04)
[2022-03-22] MEDS: ENOXAPARIN NA (PORCINE) 40 MG/0.4 ML DISP.SYRIN SQ SCH (09:59)
[2022-03-22] MEDS: POTASSIUM CHLORIDE TABS 20 MEQ TABLET.ER (FP) PO SCH (10:00)
[2022-03-22] MEDS: FUROSEMIDE 40 MG TABLET (FP) PO SCH (10:00)
[2022-03-22] MEDS: PANTOPRAZOLE 20 MG TABLET PO SCH (10:00)
[2022-03-22] MEDS: PARoxetine HCL 10 MG TABLET PO SCH (10:00)
[2022-03-22] MEDS: BUDESONIDE/FORMETEROL FUMARATE 160/4.5 mcg INHALER IH SCH ×2 (10:04→21:04)
[2022-03-22] MEDS: BREXPIPRAZOLE 2 MG PO SCH (10:06)
[2022-03-22] MEDS ORDERED: oxyCODONE HCL 5 MG TABLET PO PRN (13:25)
[2022-03-22] MEDS ORDERED: ACETAMINOPHEN 500 MG TABLET (FP) PO PRN (13:26)
[2022-03-22] MEDS ORDERED: ACETAMINOPHEN 325 MG TABLET (FP) PO PRN (13:30)
[2022-03-22] MEDS: MONTELUKAST NA 10 MG TABLET PO SCH (21:04)
[2022-03-23] MEDS: INSULIN (LEVEMIR) 100 UNITS/ML UNITS SQ SCH ×2 (06:05→21:12)
[2022-03-23] MEDS: INSULIN SLIDING SCALE (NOVOLOG) 1 VIAL SQ SCH ×4 (06:06→21:11)
[2022-03-23] MEDS: INSULIN (NOVOLOG) ASPART 100 UNITS/ML 10ML VIAL SQ SCH ×3 (06:06→16:59)
[2022-03-23 08:10] LABS: HEMATOCRIT 38.8 % (35.4-49); HEMOGLOBIN 12.1 GM/dL (11.7-16.9); MCH 27.1 pg (25.7-33.7); MCHC 31.3 g/dl (32.0-35.9); MEAN CELL VOLUME 86.7 fl (80-96); MEAN PLT VOLUME 9.2 fl (7.5-11.1); PLATELET COUNT 277 10^3/uL (134-434); RBC 4.47 M/mm3 (4.00-5.60); RDW 16.4 % (11.9-15.9); WHITE BLOOD COUNT 9.7 K/mm3 (4.0-10.0)
[2022-03-23] MEDS: BUDESONIDE 0.5 MG/2 ML INH SUSP VIAL NEB SCH ×2 (08:15→20:11)
[2022-03-23 08:41] LABS: BLOOD UREA NITROGEN 17.8 mg/dL (7-18)
[2022-03-23 08:45] LABS: CREATININE 0.5 mg/dL (0.55-1.3)
[2022-03-23 08:47] LABS: BILIRUBIN,TOTAL 0.5 mg/dL (0.2-1); TOT PROT 6.6 g/dl (6.4-8.2)
[2022-03-23] MEDS: PARoxetine HCL 10 MG TABLET PO SCH (10:11)
[2022-03-23] MEDS: POTASSIUM CHLORIDE TABS 20 MEQ TABLET.ER (FP) PO SCH (10:11)
[2022-03-23] MEDS: FUROSEMIDE 40 MG TABLET (FP) PO SCH (10:11)
[2022-03-23] MEDS: PANTOPRAZOLE 20 MG TABLET PO SCH (10:11)
[2022-03-23] MEDS: BUDESONIDE/FORMETEROL FUMARATE 160/4.5 mcg INHALER IH SCH ×2 (10:12→21:35)
[2022-03-23] MEDS: BREXPIPRAZOLE 2 MG PO SCH (10:17)
[2022-03-23] MEDS: ENOXAPARIN NA (PORCINE) 40 MG/0.4 ML DISP.SYRIN SQ SCH (17:00)
[2022-03-23] MEDS ORDERED: ACETAMINOPHEN 500 MG TABLET (FP) PO PRN (18:40)
[2022-03-23] MEDS ORDERED: ALBUTEROL SO4 HFA INHALER IH PRN (18:40)
[2022-03-23] MEDS ORDERED: POLYETHYLENE GLYCOL (HEALTHYLAX) 3350 17 GM PACKET PO PRN (18:40)
[2022-03-23] MEDS ORDERED: MELATONIN 5 MG TABLETS PO ONE (20:07)
[2022-03-23] MEDS: oxyCODONE HCL 5 MG TABLET PO PRN (20:17)
[2022-03-23] MEDS: ACETAMINOPHEN 325 MG TABLET (FP) PO PRN (20:17)
[2022-03-23] MEDS: MONTELUKAST NA 10 MG TABLET PO SCH (21:11)
[2022-03-24] MEDS: INSULIN (NOVOLOG) ASPART 100 UNITS/ML 10ML VIAL SQ SCH ×3 (06:35→17:44)
[2022-03-24] MEDS: INSULIN (LEVEMIR) 100 UNITS/ML UNITS SQ SCH ×2 (06:35→21:17)
[2022-03-24] MEDS: INSULIN SLIDING SCALE (NOVOLOG) 1 VIAL SQ SCH ×4 (06:36→21:20)
[2022-03-24] MEDS: BUDESONIDE 0.5 MG/2 ML INH SUSP VIAL NEB SCH ×2 (08:27→20:05)
[2022-03-24] MEDS: FUROSEMIDE 40 MG TABLET (FP) PO SCH (09:19)
[2022-03-24] MEDS: PANTOPRAZOLE 20 MG TABLET PO SCH (09:19)
[2022-03-24] MEDS: POTASSIUM CHLORIDE TABS 20 MEQ TABLET.ER (FP) PO SCH (09:19)
[2022-03-24] MEDS: ENOXAPARIN NA (PORCINE) 40 MG/0.4 ML DISP.SYRIN SQ SCH (09:19)
[2022-03-24] MEDS: PARoxetine HCL 10 MG TABLET PO SCH (09:19)
[2022-03-24] MEDS: BUDESONIDE/FORMETEROL FUMARATE 160/4.5 mcg INHALER IH SCH ×2 (09:23→21:22)
[2022-03-24] MEDS ORDERED: INSULIN (NOVOLOG) ASPART 100 UNITS/ML 10ML VIAL ONE (11:54)
[2022-03-24] MEDS: BREXPIPRAZOLE PO SCH (12:47)
[2022-03-24] MEDS: MONTELUKAST NA 10 MG TABLET PO SCH (21:21)
[2022-03-25] MEDS: INSULIN (LEVEMIR) 100 UNITS/ML UNITS SQ SCH ×2 (06:10→22:14)
[2022-03-25] MEDS: INSULIN (NOVOLOG) ASPART 100 UNITS/ML 10ML VIAL SQ SCH ×3 (06:13→17:46)
[2022-03-25] MEDS: INSULIN SLIDING SCALE (NOVOLOG) 1 VIAL SQ SCH ×4 (06:15→22:14)
[2022-03-25] MEDS: BUDESONIDE 0.5 MG/2 ML INH SUSP VIAL NEB SCH ×2 (07:21→20:30)
[2022-03-25] MEDS: oxyCODONE HCL 5 MG TABLET PO PRN ×2 (09:07→19:45)
[2022-03-25] MEDS: ACETAMINOPHEN 325 MG TABLET (FP) PO PRN ×2 (09:10→19:46)
[2022-03-25] MEDS: ENOXAPARIN NA (PORCINE) 40 MG/0.4 ML DISP.SYRIN SQ SCH (09:11)
[2022-03-25] MEDS: PARoxetine HCL 10 MG TABLET PO SCH (09:12)
[2022-03-25] MEDS: POTASSIUM CHLORIDE TABS 20 MEQ TABLET.ER (FP) PO SCH (09:12)
[2022-03-25] MEDS: PANTOPRAZOLE 20 MG TABLET PO SCH (09:12)
[2022-03-25] MEDS: BUDESONIDE/FORMETEROL FUMARATE 160/4.5 mcg INHALER IH SCH ×2 (09:13→22:13)
[2022-03-25] MEDS: LIDOCAINE 5% TOPICAL PATCH TP SCH (10:11)
[2022-03-25] MEDS: BREXPIPRAZOLE PO SCH (10:11)
[2022-03-25] MEDS: FUROSEMIDE 40 MG TABLET (FP) PO SCH (10:12)
[2022-03-25 21:38] VITALS: RESP 20
[2022-03-25] MEDS ORDERED: LIDOCAINE PATCH REMOVAL MC SCH (22:00)
[2022-03-25] MEDS: MONTELUKAST NA 10 MG TABLET PO SCH (22:14)
[2022-03-26] MEDS: INSULIN (NOVOLOG) ASPART 100 UNITS/ML 10ML VIAL SQ SCH ×3 (06:16→17:26)
[2022-03-26] MEDS: INSULIN (LEVEMIR) 100 UNITS/ML UNITS SQ SCH (06:17)
[2022-03-26] MEDS: INSULIN SLIDING SCALE (NOVOLOG) 1 VIAL SQ SCH ×3 (06:17→17:25)
[2022-03-26] MEDS: BUDESONIDE 0.5 MG/2 ML INH SUSP VIAL NEB SCH ×2 (08:06→20:30)
[2022-03-26] MEDS: LIDOCAINE 5% TOPICAL PATCH TP SCH (09:10)
[2022-03-26] MEDS: oxyCODONE HCL 5 MG TABLET PO PRN (09:11)
[2022-03-26] MEDS: POTASSIUM CHLORIDE TABS 20 MEQ TABLET.ER (FP) PO SCH (09:11)
[2022-03-26] MEDS: FUROSEMIDE 40 MG TABLET (FP) PO SCH (09:11)
[2022-03-26] MEDS: ACETAMINOPHEN 325 MG TABLET (FP) PO PRN (09:11)
[2022-03-26] MEDS: ENOXAPARIN NA (PORCINE) 40 MG/0.4 ML DISP.SYRIN SQ SCH (09:12)
[2022-03-26] MEDS: PARoxetine HCL 10 MG TABLET PO SCH (09:12)
[2022-03-26] MEDS: BREXPIPRAZOLE PO SCH (09:12)
[2022-03-26] MEDS: PANTOPRAZOLE 20 MG TABLET PO SCH (09:12)
[2022-03-26] MEDS: BUDESONIDE/FORMETEROL FUMARATE 160/4.5 mcg INHALER IH SCH (09:12)
[2022-03-26 10:18] LABS: HEMATOCRIT 40.3 % (35.4-49); HEMOGLOBIN 12.2 GM/dL (11.7-16.9); MCH 26.4 pg (25.7-33.7); MCHC 30.3 g/dl (32.0-35.9); PLATELET COUNT 287 10^3/uL (134-434); RBC 4.63 M/mm3 (4.00-5.60); RDW 16.6 % (11.9-15.9); WHITE BLOOD COUNT 8.2 K/mm3 (4.0-10.0)
[2022-03-26 11:07] LABS: BLOOD UREA NITROGEN 11.8 mg/dL (7-18); CREATININE 0.5 mg/dL (0.55-1.3)
[2022-03-26 11:09] LABS: TOT PROT 6.9 g/dl (6.4-8.2)
[2022-03-26 11:10] LABS: BILIRUBIN,TOTAL 0.3 mg/dL (0.2-1)
[2022-03-26] MEDS ORDERED: INSULIN (NOVOLOG) ASPART 100 UNITS/ML 10ML VIAL ONE (12:19)
[2022-03-26 15:34] VITALS: TEMP 98.7
[2022-03-26 20:47] VITALS: BP 127/68; PULSE 89
== END 2022-03-26 20:50 | DRG 207 ==
LOC: JER 11:35 → JERBED 14:30 → JICU 17:00 → J4W 03-18 17:11 → J8W 03-23 18:39
PROVIDERS: ADMIT Internal Medicine Pulmonary Disease; ATTEND Internal Medicine
PROC: 5A1955Z Respiratory Ventilation, Greater than 96 Consecutive Hours (ICD-10-PCS; principal; 2022-03-11)
PROC: 0BH17EZ Insertion of Endotracheal Airway into Trachea, Via Natural or Artificial Opening (ICD-10-PCS; 2022-03-11)
DX: J96.21 Acute and chronic respiratory failure with hypoxia (principal); J18.9 Pneumonia, unspecified organism; J44.1 Chronic obstructive pulmonary disease with (acute) exacerbation; E66.2 Morbid (severe) obesity with alveolar hypoventilation; Z68.42 Body mass index [BMI] 45.0-49.9, adult; E87.2 Acidosis; J98.11 Atelectasis; J96.22 Acute and chronic respiratory failure with hypercapnia; I11.0 Hypertensive heart disease with heart failure; I50.9 Heart failure, unspecified; F32.9 Major depressive disorder, single episode, unspecified; E11.65 Type 2 diabetes mellitus with hyperglycemia; D64.9 Anemia, unspecified; K21.9 Gastro-esophageal reflux disease without esophagitis; F17.210 Nicotine dependence, cigarettes, uncomplicated; F12.90 Cannabis use, unspecified, uncomplicated; E87.70 Fluid overload, unspecified; E87.5 Hyperkalemia; R74.01 Elevation of levels of liver transaminase levels; R00.1 Bradycardia, unspecified
CPT/HCPCS: 0241U-QW; 36415; 36600; 71045-TC-FY; 76705-TC; 80048; 80053; 80061; 80307; 81003; 82272; 82728; 82803; 82962; 83036; 83540; 83550; 83605; 83735; 83880; 84100; 84439; 84443; 84484; 85025; 85027; 85610; 87040; 87086; 87899; 93005; 93010; 93306-TC; 94002; 94640; 97116-GP; 97161-GP; 99291; C9803-CS; J1100; J1644; U0003; U0005